=== PATIENT | male | born 1970 | race Caucasian/White ===

== ENCOUNTER 2016-06-10 10:27 | Day surgery (SDC) | payer OTHER ==
[2016-06-08 14:06] VITALS: BMI 25.5
[2016-06-10] MEDS ORDERED: ceFAZolin SODIUM 1 GM VIAL ONE (10:40)
[2016-06-10] MEDS ORDERED: TAMSULOSIN HCL 0.4 MG CAP.ER.24H (FP) ONE (10:40)
[2016-06-10 11:01] VITALS: TEMP 97.8
[2016-06-10] MEDS ORDERED: ROCURONIUM BROMIDE 50 MG/5 ML VIAL ONE (12:11)
[2016-06-10] MEDS ORDERED: MIDAZOLAM HCL 2 MG/2 ML SINGLE DOSE VIAL ONE ×2 (12:11)
[2016-06-10] MEDS ORDERED: BUPIVACAINE HCL/PF 0.5% (5MG/ML) 10 ML VIAL ONE (12:25)
[2016-06-10] MEDS ORDERED: DEXAMETHASONE SOD PHOSPHATE/PF 10 MG/ML SDV ONE (12:25)
[2016-06-10] MEDS ORDERED: ceFAZolin SODIUM 1 GM VIAL IVPB ONE (12:53)
[2016-06-10] MEDS ORDERED: ONDANSETRON 4 MG/2 ML VIAL ONE (13:00)
[2016-06-10] MEDS ORDERED: DEXAMETHASONE SOD PHOSPHATE 4 MG/1 ML VIAL ONE (13:00)
[2016-06-10] MEDS ORDERED: NEOSTIGMINE METHYLSULFATE 0.5 MG/ML - 10 ML MDV ONE (13:31)
[2016-06-10] MEDS ORDERED: GLYCOPYRROLATE 0.2 MG/1 ML VIAL ONE ×2 (13:31→13:33)
[2016-06-10] MEDS ORDERED: ONDANSETRON 4 MG/2 ML VIAL IVPUSH PRN (13:54)
[2016-06-10] MEDS ORDERED: oxyCODONE HCL 5 MG TABLET PO PRN (13:54)
[2016-06-10] MEDS ORDERED: LACTATED RINGERS SOLUTION 1,000 ML IV SCH (14:00)
[2016-06-10 18:43] VITALS: BP 100/57; PULSE 68
--- NOTE | 2016-06-11 14:06 | OP ---
DATE OF OPERATION: 06/10/2016 PREOPERATIVE DIAGNOSIS: Bilateral inguinal hernias. POSTOPERATIVE DIAGNOSIS: Bilateral inguinal hernias. PROCEDURES: Bilateral laparoscopic inguinal herniorrhaphy with mesh. SURGEON: Parveen Peterson MD PATIENT SUPPORT TECH: Tigre Mckeon MD ANESTHESIA: Sherley Davis MD (general). ESTIMATED BLOOD LOSS: Minimal. SPECIMEN: None. MEDICAL COMORBIDITIES: Patient denies coronary artery disease, hypertension, and diabetes. 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 Following this, he then had a left inguinal hernia. On physical examination, he was noted to have a right inguinal hernia, as well. He is here for operative repair of both hernias. Patient was identified and appropriately positioned on the operating room table. After placement of general anesthesia, the abdomen and both groins were prepped and draped in the usual sterile fashion with ChloraPrep. An infraumbilical incision was made deep into the subcutaneous tissues. The fascia of the rectus muscle on the left identified, divided sharply, the muscles split. Under direct vision, a suprapubic 11-mm port placed. The following structures on the left side identified, pubic tubercle, Coopers ligament, inferior epigastric vessels, spermatic cord, and lateral abdominal wall. During this dissection, the patient has a direct hernia containing fat and an indirect hernia that was much smaller and a moderate-sized cord lipoma. Both reduced back into the preperitoneal space with blunt dissection. A 4.5 x 6 piece of Versatex mesh was keyhole placed through the suprapubic port site. The mesh was wrapped around the cord structures laterally to reconstruct the internal ring. Laterally, the mesh anchored to the anterior abdominal wall and lateral abdominal wall. Upon completion of the left side, similar structures on the right side identified. On the right side, the patient was noted to have attenuated direct inguinal floor. No obvious hernia. He had a moderate-sized indirect inguinal hernia sac with a smaller cord lipoma. Both reduced back into the preperitoneal space. Another 4.5 x 6 piece of Versatex mesh was keyhole placed through the suprapubic port site. The mesh wrapped around the cord structures laterally to reconstruct the internal ring. Laterally, the mesh anchored to the anterior abdominal wall and lateral abdominal wall. Medially, the mesh well overlapped in the midline, anchored to the anterior abdominal wall, pubic tubercle, and Coopers ligament. The preperitoneal space desufflated under direct vision. The operative field was examined and noted to be hemostatic. The fascia at the suprapubic port site and infraumbilical port site were reapproximated with 0 Vicryl suture. All skin closed with 4-0 Biosyn followed by Dermabond. At the conclusion of the case, sponge counts were correct. ATTESTATION: Brief operative note handwritten on the preprinted form. [facility] queried prior to giving any narcotics, and that will be done electronically. Mykel MORRIS [id number] cc: Luke Ho, [address] [place] [address],
== END 2016-06-10 18:49 | disposition home or self-care (01) ==
LOC: JASUSAT 10:27
PROVIDERS: ATTEND Surgery
PROC: 0YUA4JZ Supplement Bilateral Inguinal Region with Synthetic Substitute, Percutaneous Endoscopic Approach (ICD-10-PCS; principal; 2016-06-10 12:00)
DX: K40.20 Bilateral inguinal hernia, without obstruction or gangrene, not specified as recurrent (principal)
CPT/HCPCS: 94760